=== PATIENT | female | born 1965 | race Two or more races ===

== ENCOUNTER 2016-07-12 19:27 | Emergency (ER) | payer OTHER ==
[~2016-07-12] VITALS: Ht 167.6 cm; Wt 136.1 kg
[~2016-07-12 19:27] MED LIST: ASPI81CH43; INSU70IN9; LISI-646; METF-314; METO-169; PIOG45TA6
[2016-07-12 19:50] VITALS: BP 231/88
== END 2016-07-13 01:10 | disposition left against medical advice (07) ==
LOC: ER 19:57
DX: M79.642 Pain in left hand (principal); Z53.21 Procedure and treatment not carried out due to patient leaving prior to being seen by health care provider

== ENCOUNTER 2021-01-25 13:58 | Inpatient (IN) | payer OTHER ==
[~2021-01-25] VITALS: Ht 167.6 cm; Wt 117.9 kg
[~2021-01-25 13:58] MED LIST changes: -LISI-646; +LISI20TA28; -METF-314; +METF-371; -METO-169; +METO-289; +PIOG45TA11; -PIOG45TA6
[2021-01-25] MEDS ORDERED: AZITHROMYCIN 500MG/ 250ML 250 ML IV ONE (14:30)
[2021-01-25] MEDS ORDERED: methylPREDNISolone SOD SUCC 125 MG/2 ML VL IV ONE (14:30)
[2021-01-25 15:43] LABS: Basophils # (auto) 0 10 ^3/uL (0-0.2); Eosinophils # (auto) 0 10 ^3/uL (0-0.8); Lymphocytes # (auto) 0.3 10 ^3/uL (0.4-5.4); Monocytes # (auto) 0.1 10 ^3/uL (0-1.3)
[2021-01-25 15:46] LABS: Basophils % (auto) 0.2 % (0.0-2.0); Hematocrit 35.8 % (36.0-46.0); Hemoglobin 11.8 g/dL (12.2-16.2); Lymphocytes % (auto) 8.6 % (10.0-50.0); Mean Corpuscular Hemoglobin 25.9 pg (28.0-32.0); Mean Corpuscular Volume 78.7 fL (80.0-100.0); Monocytes % (auto) 3.4 % (0.0-12.0); Neutrophils # (auto) 2.5 10 ^3/uL (1.6-8.6); Neutrophils % (auto) 87.8 % (37.0-80.0); Nucleated Red Blood Cells % 0.6 %; Red Blood Cells 4.55 10^6/uL (4.0-5.20); Red Cell Distribution Width 19.3 % (11.8-14.3); White Blood Cell 2.9 10^3/uL (4.4-10.8)
[2021-01-25 16:01] LABS: Albumin 3.4 g/dL (3.4-5.0); Anion Gap 12 (5-15); Aspartate Aminotransferase 27 U/L (15-37); BUN/Creatinine Ratio 15.3; Blood Urea Nitrogen 23 mg/dL (7-18); Calcium 8.5 mg/dL (8.5-10.1); Carbon Dioxide 22 mmol/L (21-32); Chloride 99 mmol/L (98-107); GFR African American 47 mL/min; GFR Non-African American 38 mL/min; Glucose 171 mg/dL (74-106); Sodium 133 mmol/L (136-145)
[2021-01-25 16:03] LABS: Magnesium 1.9 mg/dL (1.6-2.6)
[2021-01-25 16:05] LABS: Alanine Aminotransferase 25 U/L (13-56); Alkaline Phosphatase 41 U/L (45-117); Bilirubin, Total 0.6 mg/dL (0.2-1.0); Total Protein 8.3 g/dL (6.4-8.2)
[2021-01-25 16:12] LABS: CRP High Sensitivity 5.72 mg/dL (< 0.3)
[2021-01-25] MEDS ORDERED: DEXTROSE (50%) 50ML SYRG IV PRN (19:45)
[2021-01-25] MEDS ORDERED: MORPHINE SULF INJ 2 MG/ML SYRINGE 1ML IV PRN (19:45)
[2021-01-25] MEDS ORDERED: IVERMECTIN 3 MG TAB PO ONE (19:45)
[2021-01-25] MEDS ORDERED: NITROGLYCERIN 0.4 MG SL TAB SL PRN (19:45)
[2021-01-25] MEDS ORDERED: SODIUM CHLORIDE 0.9% 1,000 ML IV ONE (19:45)
[2021-01-25] MEDS ORDERED: ACETAMINOPHEN 500 MG TAB PO PRN (19:45)
[2021-01-25 20:00] VITALS: BP 150/80
[2021-01-25 20:15] VITALS: BP 135/76
[2021-01-25] MEDS: BUDESONIDE (INHALATION) 180 MCG IH IN SCH (21:25)
[2021-01-25] MEDS ORDERED: ACCU-CHEK COMFORT CURVE STRIP VI SCH (22:00)
[2021-01-25] MEDS ORDERED: InsuLIN REG 1unit/0.01ml Soln (100units/ml) SC SCH (22:00)
[2021-01-25 22:56] VITALS: BP 150/80
[2021-01-25] MEDS: ENOXAPARIN SOD 40 MG/0.4 ML SYRINGE SC SCH (23:50)
[2021-01-26] MEDS ORDERED: DEXTROSE (50%) 50ML SYRG IV PRN (02:45)
[2021-01-26] MEDS ORDERED: INSULIN LANTUS (GLARGINE) 1 /0.01ml (100units/ml) SC SCH (03:00)
[2021-01-26 05:00] VITALS: BP 137/75
[2021-01-26] MEDS: ACCU-CHEK COMFORT CURVE STRIP VI SCH ×4 (06:44→21:22)
[2021-01-26] MEDS: InsuLIN REG 1unit/0.01ml Soln (100units/ml) SC SCH ×4 (06:44→21:24)
[2021-01-26] MEDS ORDERED: LEVO150T10 PO (07:36)
[2021-01-26] MEDS ORDERED: FOLI1TAB6 PO (07:36)
[2021-01-26] MEDS ORDERED: PRAV20TA3 PO (07:36)
[2021-01-26] MEDS ORDERED: HYDR200T36 PO (07:36)
[2021-01-26] MEDS ORDERED: PIOG1TAB36 PO (07:36)
[2021-01-26] MEDS ORDERED: AMLO-496 PO (07:36)
[2021-01-26] MEDS ORDERED: OMEP-260 PO (07:36)
[2021-01-26] MEDS ORDERED: METH2.5T PO (07:36)
[2021-01-26] MEDS: ALBUTEROL SULF HFA 90MCG INH 200DOSE IN PRN (08:25)
[2021-01-26] MEDS: BUDESONIDE (INHALATION) 180 MCG IH IN SCH ×2 (08:25→21:23)
[2021-01-26 09:00] VITALS: BP 138/61
[2021-01-26] MEDS: DexAMETHasone SOD PHOS 10MG/1ML VIAL INJ IV SCH (09:59)
[2021-01-26] MEDS ORDERED: AZITHROMYCIN 500MG/ 250ML 250 ML IV SCH (10:00)
[2021-01-26] MEDS: ASCORBIC ACID 1,000 MG TAB PO SCH (10:01)
[2021-01-26] MEDS: ZINC SULFATE 220mg CAP or TAB PO SCH (10:01)
[2021-01-26] MEDS: ENOXAPARIN SOD 40 MG/0.4 ML SYRINGE SC SCH ×2 (10:02→21:23)
[2021-01-26] MEDS: CHOLECALCIFEROL (VITD3) 2,000 UNIT CAP/TAB PO SCH (10:02)
[2021-01-26] MEDS ORDERED: REMDESIVIR PER PHARMACY 0 ML IV SCH (12:15)
[2021-01-26] MEDS: DOXYCYCLINE 100MG/250ML 250 ML IV SCH (12:30)
[2021-01-26] MEDS ORDERED: PANTOPRAZOLE 40 MG TAB PO ONE (12:30)
[2021-01-26 13:00] VITALS: BP 105/57
[2021-01-26 13:13] LABS: BUN/Creatinine Ratio 23.3; Calcium 8.3 mg/dL (8.5-10.1); Potassium 4.2 mmol/L (3.5-5.1)
[2021-01-26] MEDS ORDERED: REMDESIVIR 200 MG in NS 210ml LOADING DOSE ADULT IV ONE (15:00)
[2021-01-26 17:00] VITALS: BP 134/68
[2021-01-26] MEDS: INSULIN LANTUS (GLARGINE) 1 /0.01ml (100units/ml) SC SCH (21:24)
[2021-01-26 22:00] VITALS: BP 153/76
[2021-01-27] MEDS ORDERED: TEMAZEPAM 15 MG CAP PO PRN (00:30)
[2021-01-27] MEDS: DOXYCYCLINE 100MG/250ML 250 ML IV SCH ×2 (00:58→12:07)
[2021-01-27 05:00] VITALS: BP 93/59
[2021-01-27] MEDS: ACCU-CHEK COMFORT CURVE STRIP VI SCH ×4 (06:19→22:11)
[2021-01-27] MEDS: LEVOTHYROXINE SODIUM 100 MCG TAB PO SCH (06:22)
[2021-01-27] MEDS: InsuLIN REG 1unit/0.01ml Soln (100units/ml) SC SCH ×4 (06:26→22:16)
[2021-01-27 07:19] LABS: Basophils # (auto) 0 10 ^3/uL (0-0.2); Basophils % (auto) 0.2 % (0.0-2.0); Eosinophils # (auto) 0 10 ^3/uL (0-0.8); Hemoglobin 10.4 g/dL (12.2-16.2); Lymphocytes # (auto) 0.4 10 ^3/uL (0.4-5.4); Monocytes # (auto) 0.1 10 ^3/uL (0-1.3); Neutrophils % (auto) 80.8 % (37.0-80.0); White Blood Cell 2.5 10^3/uL (4.4-10.8)
[2021-01-27 07:21] LABS: Hematocrit 30.3 % (36.0-46.0); Lymphocytes % (auto) 15.5 % (10.0-50.0); Mean Corpuscular Hgb Conc. 34.3 g/dL (32.0-36.0); Mean Corpuscular Volume 78.6 fL (80.0-100.0); Monocytes % (auto) 3.5 % (0.0-12.0); Nucleated Red Blood Cells % 0.5 %; Red Blood Cells 3.86 10^6/uL (4.0-5.20); Red Cell Distribution Width 19.3 % (11.8-14.3)
[2021-01-27 07:37] LABS: Magnesium 1.8 mg/dL (1.6-2.6)
[2021-01-27 07:48] LABS: Albumin 3.2 g/dL (3.4-5.0); BUN/Creatinine Ratio 21.6; Bilirubin, Total 0.3 mg/dL (0.2-1.0); CRP High Sensitivity 3.56 mg/dL (< 0.3); Calcium 8.3 mg/dL (8.5-10.1); Total Protein 7.9 g/dL (6.4-8.2)
[2021-01-27 09:00] VITALS: BP 112/53
[2021-01-27] MEDS: BUDESONIDE (INHALATION) 180 MCG IH IN SCH ×2 (09:50→22:00)
[2021-01-27] MEDS: DexAMETHasone SOD PHOS 10MG/1ML VIAL INJ IV SCH (09:57)
[2021-01-27] MEDS: PANTOPRAZOLE 40 MG TAB PO SCH (09:57)
[2021-01-27] MEDS: CHOLECALCIFEROL (VITD3) 2,000 UNIT CAP/TAB PO SCH (09:57)
[2021-01-27] MEDS: FOLIC ACID 1 MG TAB PO SCH (09:57)
[2021-01-27] MEDS: ZINC SULFATE 220mg CAP or TAB PO SCH (09:57)
[2021-01-27] MEDS: ASCORBIC ACID 1,000 MG TAB PO SCH (09:57)
[2021-01-27] MEDS: INSULIN LANTUS (GLARGINE) 1 /0.01ml (100units/ml) SC SCH ×2 (09:59→22:16)
[2021-01-27] MEDS: ENOXAPARIN SOD 40 MG/0.4 ML SYRINGE SC SCH ×2 (09:59→22:13)
[2021-01-27 12:46] VITALS: BP 119/71
[2021-01-27] MEDS ORDERED: IVERMECTIN 3 MG TAB PO ONE (16:27)
[2021-01-27] MEDS ORDERED: MAGNESIUM SULFATE 1GM/100ML 100 ML IV ONE (16:30)
[2021-01-27] MEDS: REMDESIVIR 100mg 100 MG in SODIUM CHL 0.9% 230 ML IV SCH (16:40)
[2021-01-27 16:49] VITALS: BP 125/63
[2021-01-27] MEDS: TOCILIZUMAB 400 MG in SODIUM CHL 0.9% 80 ML IV SCH (19:13)
[2021-01-27 22:00] VITALS: BP 155/71
[2021-01-28] MEDS: DOXYCYCLINE 100MG/250ML 250 ML IV SCH ×2 (00:06→12:23)
[2021-01-28 05:00] VITALS: BP 129/66
[2021-01-28 06:43] LABS: Hemoglobin 9.9 g/dL (12.2-16.2)
[2021-01-28 06:45] LABS: Hematocrit 29.2 % (36.0-46.0)
[2021-01-28] MEDS: ACCU-CHEK COMFORT CURVE STRIP VI SCH ×4 (06:47→21:39)
[2021-01-28] MEDS: LEVOTHYROXINE SODIUM 100 MCG TAB PO SCH (06:49)
[2021-01-28] MEDS: InsuLIN REG 1unit/0.01ml Soln (100units/ml) SC SCH ×4 (06:51→21:44)
[2021-01-28] MEDS: TOCILIZUMAB 400 MG in SODIUM CHL 0.9% 80 ML IV SCH (06:53)
[2021-01-28 07:04] LABS: Albumin 3.1 g/dL (3.4-5.0); Calcium 8.3 mg/dL (8.5-10.1); Potassium 3.7 mmol/L (3.5-5.1)
[2021-01-28 07:07] LABS: BUN/Creatinine Ratio 23.4; Bilirubin, Total 0.4 mg/dL (0.2-1.0); Total Protein 7.2 g/dL (6.4-8.2)
[2021-01-28] MEDS: BUDESONIDE (INHALATION) 180 MCG IH IN SCH ×2 (07:16→20:33)
[2021-01-28 09:00] VITALS: BP 106/51
[2021-01-28] MEDS ORDERED: IVERMECTIN 3 MG TAB PO SCH (10:00)
[2021-01-28] MEDS: DexAMETHasone SOD PHOS 10MG/1ML VIAL INJ IV SCH (10:02)
[2021-01-28] MEDS: FOLIC ACID 1 MG TAB PO SCH (10:02)
[2021-01-28] MEDS: ASCORBIC ACID 1,000 MG TAB PO SCH (10:03)
[2021-01-28] MEDS: CHOLECALCIFEROL (VITD3) 2,000 UNIT CAP/TAB PO SCH (10:03)
[2021-01-28] MEDS: PANTOPRAZOLE 40 MG TAB PO SCH (10:03)
[2021-01-28] MEDS: ZINC SULFATE 220mg CAP or TAB PO SCH (10:03)
[2021-01-28] MEDS: ENOXAPARIN SOD 40 MG/0.4 ML SYRINGE SC SCH ×2 (10:03→21:42)
[2021-01-28] MEDS: INSULIN LANTUS (GLARGINE) 1 /0.01ml (100units/ml) SC SCH ×2 (10:04→21:44)
[2021-01-28 13:00] VITALS: BP 126/68
[2021-01-28] MEDS: REMDESIVIR 100mg 100 MG in SODIUM CHL 0.9% 230 ML IV SCH (15:10)
[2021-01-28 16:50] VITALS: BP 140/71
[2021-01-28] MEDS: ALBUTEROL SULF HFA 90MCG INH 200DOSE IN PRN (20:33)
[2021-01-28 20:59] VITALS: BP 140/71
[2021-01-28 22:00] VITALS: BP 144/62
[2021-01-29] MEDS: DOXYCYCLINE 100MG/250ML 250 ML IV SCH ×2 (00:07→12:30)
[2021-01-29 05:00] VITALS: BP 131/83
[2021-01-29] MEDS: ACCU-CHEK COMFORT CURVE STRIP VI SCH ×2 (06:25→11:41)
[2021-01-29] MEDS: LEVOTHYROXINE SODIUM 100 MCG TAB PO SCH (06:27)
[2021-01-29] MEDS: InsuLIN REG 1unit/0.01ml Soln (100units/ml) SC SCH ×2 (06:28→11:43)
[2021-01-29 07:21] LABS: Albumin 3.2 g/dL (3.4-5.0); Calcium 8.3 mg/dL (8.5-10.1); Potassium 3.4 mmol/L (3.5-5.1)
[2021-01-29 07:23] LABS: BUN/Creatinine Ratio 26.3
[2021-01-29 07:37] LABS: Bilirubin, Total 0.2 mg/dL (0.2-1.0)
[2021-01-29] MEDS: ALBUTEROL SULF HFA 90MCG INH 200DOSE IN PRN (07:42)
[2021-01-29] MEDS: BUDESONIDE (INHALATION) 180 MCG IH IN SCH (07:42)
[2021-01-29] MEDS: DexAMETHasone SOD PHOS 10MG/1ML VIAL INJ IV SCH (10:45)
[2021-01-29] MEDS: ASCORBIC ACID 1,000 MG TAB PO SCH (10:46)
[2021-01-29] MEDS: ZINC SULFATE 220mg CAP or TAB PO SCH (10:46)
[2021-01-29] MEDS: PANTOPRAZOLE 40 MG TAB PO SCH (10:46)
[2021-01-29] MEDS: FOLIC ACID 1 MG TAB PO SCH (10:46)
[2021-01-29] MEDS: CHOLECALCIFEROL (VITD3) 2,000 UNIT CAP/TAB PO SCH (10:46)
[2021-01-29] MEDS: ENOXAPARIN SOD 40 MG/0.4 ML SYRINGE SC SCH (10:47)
[2021-01-29] MEDS: INSULIN LANTUS (GLARGINE) 1 /0.01ml (100units/ml) SC SCH (10:48)
[2021-01-29] MEDS ORDERED: CHOL20007 PO (12:17)
[2021-01-29] MEDS ORDERED: DOXY-340 PO (12:20)
[2021-01-29 13:00] VITALS: BP 130/63
== END 2021-01-29 14:15 | disposition home or self-care (01) | DRG 720 ==
LOC: ER 13:58 → TELE 19:40 → TELE-EAST 22:30
PROVIDERS: ADMIT Nurse Practitioner Acute Care; ATTEND Internal Medicine Nephrology
PROC: XW033E5 Introduction of Remdesivir Anti-infective into Peripheral Vein, Percutaneous Approach, New Technology Group 5 (ICD-10-PCS; principal; 2021-01-26)
PROC: XW033H5 Introduction of Tocilizumab into Peripheral Vein, Percutaneous Approach, New Technology Group 5 (ICD-10-PCS; 2021-01-27)
DX: A41.89 Other specified sepsis (principal); U07.1 COVID-19; J96.01 Acute respiratory failure with hypoxia; N17.0 Acute kidney failure with tubular necrosis; J12.82 Pneumonia due to coronavirus disease 2019; D89.839 Cytokine release syndrome, grade unspecified; N18.30 Chronic kidney disease, stage 3 unspecified; Z68.41 Body mass index [BMI] 40.0-44.9, adult; E11.22 Type 2 diabetes mellitus with diabetic chronic kidney disease; E66.9 Obesity, unspecified; E03.9 Hypothyroidism, unspecified; E55.9 Vitamin D deficiency, unspecified; E78.5 Hyperlipidemia, unspecified; M06.9 Rheumatoid arthritis, unspecified; I12.9 Hypertensive chronic kidney disease with stage 1 through stage 4 chronic kidney disease, or unspecified chronic kidney disease; Z79.84 Long term (current) use of oral hypoglycemic drugs; Z80.9 Family history of malignant neoplasm, unspecified; Z82.49 Family history of ischemic heart disease and other diseases of the circulatory system; Z83.3 Family history of diabetes mellitus; Z90.710 Acquired absence of both cervix and uterus; Z98.51 Tubal ligation status; Z28.3 Underimmunization status
CPT/HCPCS: 36415; 71046; 71250; 80048; 80053; 80061; 82306; 82728; 82962; 83036; 83605; 83615; 83735; 84443; 84484; 85014; 85018; 85025; 85379; 86141; 87040; 87426; 93005; 94640; 96361; 96365; 96366; 96375; G0378; J1100; J1815; J3490

== ENCOUNTER → 2023-08-05 | Outpatient (CLI) | payer MEDICAID ==
[~2023-08-05] VITALS: Ht 167.6 cm; Wt 134.7 kg
[~2023-08-05] MED LIST changes: +AMLO1TAB23 PO; +CHOL20007 PO; +DOXY1CAP57 PO; +FOLI-119 PO; +HYDR200T36 PO; +LEVO150T10 PO; -LISI20TA28; +LISI20TA56; +METH2.5T PO; +OMEP1CAP70 PO; +PIOG1TAB36 PO; +PRAV20TA3 PO
[2023-08-05] MEDS: ADENOSINE 113 MG in GIVE UN-DILUTED 0 ML IV ONE (09:16)
== END | disposition home or self-care (01) ==
LOC: XYW 07:19
PROVIDERS: ATTEND Student in an Organized Health Care Education/Training Program
DX: R07.9 Chest pain, unspecified (principal)
CPT/HCPCS: 78452; 93017; A9500; J0153

== ENCOUNTER → 2023-09-12 | Outpatient (CLI) | payer MEDICAID | END | disposition home or self-care (01) | LOC: XYW 13:32 | PROVIDERS: ATTEND Student in an Organized Health Care Education/Training Program | DX: I51.7 Cardiomegaly (principal); R07.9 Chest pain, unspecified | CPT/HCPCS: 93306 ==

== ENCOUNTER 2023-11-15 12:07 | Emergency (ER) | payer MEDICAID ==
[~2023-11-15] VITALS: Ht 167.6 cm; Wt 127.7 kg
[2023-11-15 12:30] VITALS: BP 139/60; PULSE 69; RESP 18; O2SAT 97
[2023-11-15 12:59] LABS: Basophils # (auto) 0 10 ^3/uL (0-0.2); Basophils % (auto) 0.5 % (0.0-2.0); Eosinophils # (auto) 0 10 ^3/uL (0-0.8); Eosinophils % (auto) 1.1 % (0.0-7.0); Hematocrit 41.3 % (36.0-46.0); Hemoglobin 13.4 g/dL (12.2-16.2); Lymphocytes # (auto) 0.6 10 ^3/uL (0.4-5.4); Lymphocytes % (auto) 17.1 % (10.0-50.0); Mean Corpuscular Hemoglobin 30.6 pg (28.0-32.0); Mean Corpuscular Hgb Conc. 32.5 g/dL (32.0-36.0); Monocytes # (auto) 0.2 10 ^3/uL (0-1.3); Monocytes % (auto) 5.7 % (0.0-12.0); Neutrophils # (auto) 2.8 10 ^3/uL (1.6-8.6); Neutrophils % (auto) 75.6 % (37.0-80.0); Nucleated Red Blood Cells % 0.1 %; Red Blood Cells 4.39 10^6/uL (4.0-5.20); Red Cell Distribution Width 15.9 % (11.8-14.3); White Blood Cell 3.8 10^3/uL (4.4-10.8)
[2023-11-15 13:09] LABS: Chloride 102 mmol/L (98-107); Sodium 139 mmol/L (136-145)
[2023-11-15 13:10] LABS: Anion Gap 7 (5-15); Calcium 9.3 mg/dL (8.5-10.1); Carbon Dioxide 30 mmol/L (20-30)
[2023-11-15 13:15] LABS: BUN/Creatinine Ratio 16.6 (10.0-20.0); Blood Urea Nitrogen 24 mg/dL (9-23); Glucose 255 mg/dL (74-106)
== END 2023-11-15 14:18 | disposition left against medical advice (07) ==
LOC: ER 12:18
DX: E11.65 Type 2 diabetes mellitus with hyperglycemia (principal); I12.9 Hypertensive chronic kidney disease with stage 1 through stage 4 chronic kidney disease, or unspecified chronic kidney disease; E11.22 Type 2 diabetes mellitus with diabetic chronic kidney disease; N18.9 Chronic kidney disease, unspecified; E78.5 Hyperlipidemia, unspecified; Z98.890 Other specified postprocedural states; Z79.899 Other long term (current) drug therapy
CPT/HCPCS: 36415; 80048; 85025